=== PATIENT | female | born 1950 | race Caucasian/White ===

== ENCOUNTER 2022-03-28 10:12 | Inpatient (IN) | payer MEDICARE, OTHER ==
[2022-03-28 10:35] LABS: BASOPHILS # (AUTO) 0.1 10^3/uL (0.0-0.1); BASOPHILS % (AUTO) 0.4 %; EOSINOPHILS # (AUTO) 0.1 10^3/uL (0.0-0.7); EOSINOPHILS % (AUTO) 0.7 %; HCT - HEMATOCRIT 43.9 % (37.0-47.0); HGB - HEMOGLOBIN 14.9 g/dL (12.0-16.0); LYMPHOCYTES % (AUTO) 8.2 %; MEAN CORPUSCULAR HEMOGLOBIN 30.8 pg (27.0-31.0); MEAN CORPUSCULAR HGB CONC 33.9 g/dL (32.0-36.0); MEAN CORPUSCULAR VOLUME 90.9 fL (81.0-99.0); MEAN PLATELET VOLUME 9.8 fL (7.9-10.8); MONOCYTES # (AUTO) 0.9 10^3/uL (0.0-1.0); MONOCYTES % (AUTO) 6.9 %; NEUTROPHILS # (AUTO) 10.2 10^3/uL (1.5-6.6); NEUTROPHILS % (AUTO) 83.4 %; PLT - PLATELET COUNT 247 10^3/uL (130-450); RED BLOOD COUNT 4.83 10^6/uL (4.20-5.40); RED CELL DISTRIBUTION WIDTH 11.9 % (12.0-15.0); WHITE BLOOD COUNT 12.3 x10^3/uL (4.8-10.8)
[2022-03-28 10:37] LABS: BILIRUBIN,URINE NEGATIVE (NEGATIVE); GLUCOSE, URINE (UA) NEGATIVE (NEGATIVE); KETONES,URINE (UA) 15 mg/dL (NEGATIVE); LEUKOCYTE ESTERASE, URINE NEGATIVE (NEGATIVE); NITRITE,URINE NEGATIVE (NEGATIVE); OCCULT BLOOD,URINE TRACE-INTA (NEGATIVE); PROTEIN,URINE NEGATIVE (NEGATIVE); UROBILINOGEN,URINE 1 (NORMAL) E.U./dL (NORMAL)
[2022-03-28 10:39] LABS: CLARITY,URINE CLEAR (CLEAR)
[2022-03-28 10:48] LABS: ALBUMIN 4.4 g/dL (3.2-5.5); ALBUMIN/GLOBULIN RATIO 1.1 (1.0-2.2); BILIRUBIN,TOTAL 1.6 mg/dL (0.2-1.0); CALCIUM 9.9 mg/dL (8.5-10.3); CREATININE 0.8 mg/dL (0.4-1.0); TOTAL PROTEIN 8.5 g/dL (6.7-8.2)
--- NOTE | 2022-03-28 12:06 | ED Physician Documentation ---
PD HPI ABD PAIN - Stated complaint Stated Complaint: ABD PX/FEVER - Chief complaint Chief Complaint: Abd Pain - History obtained from History obtained from: Patient - History of Present Illness Timing - onset: Last night Timing - duration: Days (1) Timing - details: Gradual onset Pain level max: 2 Pain level now: 2 Quality: Aching, Pain Location: LLQ Associated symptoms: No: Fever, Nausea, Vomiting, Hematemesis, Diarrhea, Con stipation - Additional information Additional information: Patient is a 71-year-old female who presents to the emergency department complaining of left lower quadrant abdominal pain, described as achy. Has progressed since last night. No fevers. No chills. States she is concerned about potential diverticulitis. She states that she ate some "crunchy" food last night. Review of Systems Ten Systems: 10 systems reviewed and negative Constitutional: denies: Fever, Chills Cardiac: denies: Chest pain / pressure Respiratory: denies: Dyspnea, Cough GI: denies: Vomiting Skin: denies: Rash Musculoskeletal: denies: Neck pain, Back pain Neurologic: denies: Headache PD PAST MEDICAL HISTORY - Past Medical History Past Medical History: No - Present Medications Home Medications: Ambulatory Orders Medication Instructions Recorded Confirmed amLODIPine [Norvasc] 5 mg PO DAILY 03/28/22 03/28/22 hydroCHLOROthiazide 50 mg PO DAILY 03/28/22 03/28/22 [Hydrochlorothiazide] - Allergies Allergies/Adverse Reactions: Allergies Allergy/AdvReac Type Severity Reaction Status Date / Time Sulfa (Sulfonamide Allergy Hives Verified 03/28/22 10:21 Antibiotics) - Social History Does the pt smoke?: No Smoking Status: Never smoker PD ED PE NORMAL - Vitals Vital signs reviewed: Yes - General General: Alert and oriented X 3, No acute distress - HEENT HEENT: Moist mucous membranes - Neck Neck: Supple, no meningeal sign - Cardiac Cardiac: RRR - Respiratory Respiratory: No respiratory distress, Clear bilaterally - Abdomen Abdomen: Soft, Non distended, Other (Tender to palpation left lower quadrant without peritoneal signs) - Back Back: No CVA TTP - Derm Derm: Warm and dry - Extremities Extremities: No edema - Neuro Neuro: Alert and oriented X 3 - Psych Psych: Normal mood, Normal affect Results - Vitals Vitals: Vital Signs - 24 hr 03/28/22 10:17 Temperature 36.3 C L Heart Rate 108 H Respiratory 16 Rate Blood Pressure 162/96 H O2 Saturation 96 Oxygen O2 Source Room air - Labs Labs: Laboratory Tests 03/28/22 03/28/22 03/28/22 10:30 10:30 10:30 WBC 12.3 H RBC 4.83 Hgb 14.9 Hct 43.9 MCV 90.9 MCH 30.8 MCHC 33.9 RDW 11.9 L Plt Count 247 MPV 9.8 Neut # (Auto) 10.2 H Lymph # (Auto) 1.0 L [place] # (Auto) 0.9 Eos # (Auto) 0.1 Baso # (Auto) 0.1 Absolute Nucleated RBC 0.00 Nucleated RBC % 0.0 Sodium 136 Potassium 3.0 L Chloride 94 L Carbon Dioxide 28 Anion Gap 14.0 H BUN 21 H Creatinine 0.8 Estimated GFR (MDRD) 71 L Glucose 107 H Calcium 9.9 Total Bilirubin 1.6 H AST 13 ALT 13 Alkaline Phosphatase 70 Total Protein 8.5 H Albumin 4.4 Globulin 4.1 Albumin/Globulin Ratio 1.1 Lipase 22 Urine Color YELLOW Urine Clarity CLEAR Urine pH 6.0 Ur Specific [place] 1.010 Urine Protein NEGATIVE Urine Glucose (UA) NEGATIVE Urine Ketones 15 H Urine Occult Blood TRACE-INTA Urine Nitrite NEGATIVE Urine Bilirubin NEGATIVE Urine Urobilinogen 1 (NORMAL) Ur Leukocyte Esterase NEGATIVE Ur Microscopic Review NOT INDICATED Urine Culture Comments NOT INDICATED - Rads (name of study) CT abd/pelvis Radiology: Final report received, EMP read contemporaneously, See rad report PD MEDICAL DECISION MAKING - ED course Complexity details: reviewed results, re-evaluated patient, considered differential, d/w patient, d/w family, d/w strategic solutions consultant ED course: 71-year-old female with acute diverticulitis with contained perforation, no abscess. Started on IV antibiotics. We will admit for further care. Discussed the case with Dr. Espinosa, hospitalist accepts. Also discussed the case with Dr. Hodgson, general surgery who will consult and follow along. This document was made in part using voice recognition software. While efforts are made to proofread this document, sound alike and grammatical errors may occur. IMPRESSION: 1. Finding is consistent with acute diverticulitis involving proximal sigmoid colon in left lower quadrant abdomen with suggestion of contained perforation and small pockets of air along medial aspect of inflating the proximal sigmoid colon. No discrete drainable abscess collection. No peritoneal free fluid of free air. 2. Normal appendix. No bowel obstruction. No other area of abnormal bowel wall thickening. 3. Left renal cysts as above. No hydronephrosis or hydroureter. 4. Well-circumscribed fluid density structure in right hepatic lobe likely represent hepatic cyst. Departure - Departure Disposition: [facility] DC/Xfer Clinical Impression: Acute diverticulitis, Perforated diverticulum Condition: Good Discharge Date/Time: 03/28/22 13:57
--- NOTE | 2022-03-28 12:46 | CT Report ---
PROCEDURE: Abdomen/Pelvis W INDICATIONS: LLQ abd pain CONTRAST: IV CONTRAST: Optiray 320 ml: 100 PO CONTRAST: *NO PO CONTRAST TECHNIQUE: After the administration of IV contrast, 5 mm thick sections acquired from the diaphragms to the symp hysis. 5 mm thick coronal and sagittal reformats were acquired. For radiation dose reduction, the f ollowing was used: automated exposure control, adjustment of mA and/or kV according to patient size. COMPARISON: None. FINDINGS: Image quality: Excellent. ABDOMEN: Lung bases: Lung bases are clear. Heart size is normal. Solid organs: Liver and spleen are normal in size. Well-circumscribed oval hypodense area involving right hepatic lobe anterior segment is seen measures 2.7 x 1.9 cm in size and 17 Hounsfield unit in d ensity likely represent hepatic cysts series 3 image 23. Gallbladder the is within normal limits . Bi liary system is non dilated. Pancreas enhances normally. No adrenal nodules. Kidneys demonstrate n ormal size and enhancement, without hydronephrosis. 2 left renal cysts are seen measures 5.3 x 5.9 c m in size in upper pole left kidney and 6.5 x 6 cm in size in lower pole left kidney. Peritoneum and bowel: There is no bowel obstruction. No gastric or small bowel wall thickening. Marke d proximal sigmoid colon wall thickening with extensive adjacent pericolonic fat stranding is seen co nsistent with acute diverticulitis. Extraluminal air is noted medial to inflamed proximal sigmoid col on concerning for contained perforation. No discrete drainable abscess collection. No peritoneal free fluid of free air. Appendix is visualized and is within normal limits. Nodes and vessels: No retroperitoneal or mesenteric adenopathy by size criteria. Aorta and inferior vena cava are normal in size. Miscellaneous: No ventral hernias. PELVIS: Genitourinary: Bladder wall thickness is normal. Miscellaneous: No inguinal hernias or adenopathy. Bones: No suspicious bony lesions. No vertebral body compression fractures. IMPRESSION: 1. Finding is consistent with acute diverticulitis involving proximal sigmoid colon in left lower misha drant abdomen with suggestion of contained perforation and small pockets of air along medial aspect o f inflating the proximal sigmoid colon. No discrete drainable abscess collection. No peritoneal free fluid of free air. 2. Normal appendix. No bowel obstruction. No other area of abnormal bowel wall thickening. 3. Left renal cysts as above. No hydronephrosis or hydroureter. 4. Well-circumscribed fluid density structure in right hepatic lobe likely represent hepatic cyst. Reviewed by: Daniel Aguilar MD on 03/28/2022 12:44 PM PDT Approved by: Daniel Aguilar MD on 03/28/2022 12:44 PM PDT Station ID: [id number]
[2022-03-28] MEDS ORDERED: PIPERACILLIN/TAZOBACTAM 3.375 GM in SODIUM CHLORIDE 0.9% MINIBAG 100 ML IV STA (13:07)
[2022-03-28] MEDS ORDERED: SODIUM CHLORIDE FLUSH 0.9% 10 ML SYRINGE IVP PRN (13:07)
[2022-03-28] MEDS ORDERED: ONDANSETRON ODT 4 MG TABLET TL PRN (13:07)
[2022-03-28] MEDS ORDERED: oxyCODONE 5 MG TABLET PO PRN (13:07)
[2022-03-28] MEDS ORDERED: MORPHINE 2 MG/ML CARPUJECT IVP PRN (13:07)
[2022-03-28] MEDS ORDERED: ACETAMINOPHEN 325 MG TABLET PO PRN (13:07)
[2022-03-28] MEDS ORDERED: ONDANSETRON 4 MG/2 ML VIAL IVP PRN (13:07)
--- NOTE | 2022-03-28 13:18 | HISTORY & PHYSICAL EXAMINATION ---
Chief Complaint - Chief Complaint Chief Complaint: LLQ abd pain History of Present Illness - Admitted From Admitted From:: HOME - History Obtained From Records Reviewed: [facility] History obtained from: Dr. Ponce and patient Exam Limitations: none - History of Present Illness HPI Comment/Other: Patient arrived to the emergency room today by private vehicle stating that she had been having right upper quadrant pain. And then she corrected herself to say that it was right upper quadrant and radiated across to the left upper quadrant and down to the left lower quadrant. The pain started on Sunday. Was very severe Sunday night and seemed to calm down Sunday and Sunday. She almost did not come in today but felt that (after reading about diverticulosis) that she should have it checked out. There has been no fever, no chills, no diarrhea. She has a past medical history for high blood pressure and that is about it. There is no blood in her stool. She does have a history of colon polyps. After discussing anatomy, she was started to realize that the polyps have nothing to do with diverticulosis. In the emergency room she was temperature 36.3. Heart rate of 108. Blood pressure 162/96 and saturating normally on room air. She had a tender left lower quadrant on abdominal exam without peritoneal signs. Soft. Bowel sounds were present. White cell count was 12.3. Potassium was 3. BUN 21. And CAT sc an showed findings consistent with acute diverticulitis involving the proximal sigmoid colon in the left quadrant abdomen with suggestion of contained perforation and small pockets of air along medial aspect of the proximal sigmoid colon. No discrete drainable abscess. No fluid or free air. Normal appendix. Left renal cyst but no hydronephrosis or hydroureter. She had a well circumscribed fluid density in the right hepatic lobe representing hepatic cyst. 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 Had a past medical history of seizures. Dad at age 78 of lung cancer. 4 older siblings. Endometrial cancer, heart disease, emphysema, seizure, and high blood pressure are present in them. Only child, son, is healthy Living arrangement: At home Living Situation: With spouse/s.o. Social History Notes: Under a lot of stress this last year as they have tried to sell their house in [place] and have moved to the [place] this summer. She has been drinking too much and drinks up to 3 drinks a day for the last year. She usually drinks 1 or 2. Started smoking at the age of 26, really started smoking by 28 and was 1 pack/day until 2003. No cocaine, heroin, LSD, speed. 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 to her first . They live in their own home here on [address] - Substance History Use: Uses substance without health or social issues: NONE Abuse: Recurrent use of substance despite neg consequences: NONE Dependence: Experiences withdrawal or developed tolerances: NONE - POLST Patient has POLST: No POLST Status: DNR (She has advanced directives with attorneys. is POA) Meds/Allgy - Home Medications Home Medications: Ambulatory Orders Medication Instructions Recorded Confirmed amLODIPine [Norvasc] 5 mg PO DAILY 03/28/22 03/28/22 hydroCHLOROthiazide 50 mg PO DAILY 03/28/22 03/28/22 [Hydrochlorothiazide] - Allergies Allergies/Adverse Reactions: Allergies Allergy/AdvReac Type Severity Reaction Status Date / Time Sulfa (Sulfonamide Allergy Hives Verified 03/28/22 10:21 Antibiotics) Review of Systems - Constitutional Constitutional: reports: Night sweats (With menopause. Been taking hormone replacement therapy for 5 years. As of last week it started to taper off). den ies: Fatigue, Fever, Chills, Malaise, Poor appetite, Diaphoresis - Eyes Eyes: denies: Pain, Irritation, Amaurosis, Blurred vision - Ears, Nose & Throat Ears, Nose & Throat: denies: Ear pain, Hearing loss, Hearing aids, Vertigo, Dentures, Sore throat - Cardiovascular Cariovascular: denies: Irregular heart rate, Palpitations, Chest pain, Edema, Lightheadedness, Syncope, Exertional dyspnea, Decr. exercise tolerance - Respiratory Respiratory: denies: Cough, Sputum production, Wheezing, Snoring, SOB at rest, SOB with exertion - Gastrointestinal Gastrointestinal: reports: Abdominal pain. denies: Diarrhea, Black stools, Bloody stools, Nausea - Genitourinary Genitourinary: denies: Dysuria, Frequency, Urgency, Hematuria - Musculoskeletal Musculoskeletal: denies: Muscle pain, Back pain, Muscle aches, Stiffness - Integumentary Integumentary: denies: Rash, Pruritis, Lesions, Dryness - Neurological Neurological: reports: Memory problems (Mild. She forgets where she puts things or why she went to go somewhere). denies: General weakness, Headache, Dizziness, Numbness - Psychiatric Psychiatric: reports: Anxiety. denies: Depression, Suicidal - Endocrine Endocrine: denies: Polyuria, Polydypsia, Polyphagia, Intolerance to cold - Hematologic/Lymphatic Hematologic/Lymphatic: denies: Anemia, Bruising, Petechiae, Blood clots Prior Level of Functionality: Completely independent with activities of daily living. Drives, pays bills, cleans house, does yard work. No use of durable medical equipment Exam - Vital Signs Reviewed Vital Signs: Yes Vital Signs: Vital Signs x48h Temp Pulse Resp BP Pulse Ox 03/28/22 10:17 36.3 C L 108 H 16 162/96 H 96 - Physical Exam General Appearance: positive: No acute distress, Alert, Other (Much, much younger appearance than stated age.) Eyes Bilateral: positive: PERRL, EOMI ENT: positive: Pharynx nml Neck: positive: No JVD. negative: Stiff neck Respiratory: positive: No respiratory distress. negative: Wheezes, Rales, Rhonchi Cardiovascular: positive: Regular rate & rhythm. negative: Gallop/S4, Friction rub Abdomen: positive: Nml bowel sounds, Tenderness, Other (Mild in left lower quadrant,). negative: Guarding, Rebound Skin: positive: Warm, Dry Extremities: positive: Full ROM, No pedal edema Neurologic/Psychiatric: positive: Oriented x3, CN's nml (2-12), Motor nml, Sensation nml Conclusion/Plan - Problem List (1) Perforated diverticulum Conclusion/Plan: Plan is an inpatient stay Single agent antibiotics with Zosyn General surgery consult Clear liquid diet with pain management and antiemetics (2) Hypertension Conclusion/Plan: She takes amlodipine and hydrochlorothiazide. Blood pressure was 162 in the emergency room and she is now 128 on MedSurg. Will resume tomorrow morning. Qualifiers: Hypertension type: primary hypertension Qualified Code(s): I10 - Essential (primary) hypertension (3) Alcohol use disorder, mild, abuse Conclusion/Plan: Due to the stress of moving. I have advised her to cut down to 1 drink a day max for a lady who is 5 foot 3. She says that would be easy for her to do. (4) Hypokalemia Conclusion/Plan: supplement IV recheck in am (5) Has access to primary care provider within 41 to 50 miles Conclusion/Plan: Her primary care provider used to be in [place]. But in the last year she is "disappeared". The patient needs to establish himself with a new PCP. She lives in [place]. I will have social work give her a list of primary care providers in the area that she can work with - Lab Results Lab results reviewed: Yes Fish Bones: 03/28/22 10:30 03/28/22 10:30 - Diagnostic Imaging Results Diagnostic Imaging Results: positive: Final report reviewed Diagnostic Imaging Results Comments: Right hepatic lobe cyst. Gallbladder normal. No adrenal nodules. 2 left renal cyst without hydronephrosis. No bowel obstruction. No small bowel disease. Marked proximal sigmoid colon wall thickening with extensive adjacent pericolic fat stranding consistent with acute diverticulitis. Extraluminal air noted medial to inflamed proximal sigmoid colon concerning for perforation. No discrete drainable abscess collection. No peritoneal free fluid or free air. - EKG Results EKG Interpreted Independently: No Core Measures - Anticipated LOS I expect patient to be DC'd or transferred within 96 hours.: Yes - DVT/VTE - Prophylaxis VTE/DVT Prophylaxis med ordered at admit?: Yes
[2022-03-28] MEDS ORDERED: SODIUM CHLORIDE 0.9% 1,000 ML IV SCH (14:00)
[2022-03-28] MEDS: POTASSIUM CHLOR 10 MEQ/100 ML 10 MEQ/100 ML BAG IV SCH ×5 (16:46→23:48)
[2022-03-28] MEDS: SODIUM CHLORIDE FLUSH 0.9% 10 ML SYRINGE IVP SCH (18:14)
[2022-03-28] MEDS: PIPERACILLIN/TAZOBACTAM 3.375 GM in SODIUM CHLORIDE 0.9% MINIBAG 100 ML IV SCH (18:14)
--- NOTE | 2022-03-28 18:25 | CONSULTATION NOTE ---
Referring Provider Name of Referring Provider:: Dr. Espinosa (hospitalist team) Consult Date: 03/28/22 Chief Complaint - Chief Complaint Chief Complaint: abdominal pain History of Present Illness - Admitted From Admitted From:: ED - History Obtained From Records Reviewed: yes History obtained from: chart, ED provider, patient Exam Limitations: none - History of Present Illness HPI Comment/Other: Presents with abdominal pain which began Sunday and worsened Sunday evening. Her pain was acute in onset.The patient notes that she ate "a crunchy dinner" prior to the onset of her symptoms. It was located in the right upper quadrant and radiated to the left upper quadrant and left lower quadrant. Her pain was sharp and severe Sunday evening and kept her up most of the night. She also had a single episode of vomiting which she related to the pain. She has felt chilled but has not had a fever when she is taken her temperature. Initially Sunday and Sunday she had some constipation and over the last 24 hours she reports loose stools. She denies any blood in her stool or melanotic stool. She has a history of colon polyps and gets colonoscopies every 3 years. Her last colonoscopy was approximately 1 year ago. She thinks she may also have a history of diverticulosis.She denies any history of similar pain or diverticulitis. In the emergency department, the patient was tachycardic and was noted to have a leukocytosis. Her CT scan revealed a microperforated diverticulitis in the proximal sigmoid colon. Given the contained perforation, the patient was admitted for IV antibiotics and I am being consulted. 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 Had a past medical history of seizures. Dad at age 78 of lung cancer. 4 older siblings. Endometrial cancer, heart disease, emphysema, seizure, and high blood pressure are present in them. Only child, son, is healthy Living arrangement: At home Living Situation: With spouse/s.o. Social History Notes: Under a lot of stress this last year as they have tried to sell their house in [email or web address] and have moved to the [place] this summer. She has been drinking too much and drinks up to 3 drinks a day for the last year. She usually drinks 1 or 2. Started smoking at the age of 26, really started smoking by 28 and was 1 pack/day until 2003. No cocaine, heroin, LSD, speed. 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 They live in their own home here on [facility] [facility] - Substance History Use: Uses substance without health or social issues: NONE Abuse: Recurrent use of substance despite neg consequences: NONE Dependence: Experiences withdrawal or developed tolerances: NONE - POLST Patient has POLST: No POLST Status: DNR (She has advanced directives with attorneys. is POA) Meds/Allgy - Home Medications Home Medications: Ambulatory Orders Medication Instructions Recorded Confirmed amLODIPine [Norvasc] 5 mg PO DAILY 03/28/22 03/28/22 hydroCHLOROthiazide 50 mg PO DAILY 03/28/22 03/28/22 [Hydrochlorothiazide] - Allergies Allergies/Adverse Reactions: Allergies Allergy/AdvReac Type Severity Reaction Status Date / Time Sulfa (Sulfonamide Allergy Hives Verified 03/28/22 10:21 Antibiotics) Review of Systems - All Other Systems All Other Systems: reports: Reviewed and negative (Except for HPI and past medical history) Exam - Vital Signs Reviewed Vital Signs: Yes Vital Signs: Vital Signs x48h Temp Pulse Pulse Resp BP BP Pulse Ox 03/28/22 15:15 37.1 C 97 24 129/80 97 03/28/22 13:18 95 16 128/94 H 100 - Physical Exam General Appearance: positive: No acute distress, Alert Eyes Bilateral: positive: Normal inspection, PERRL, EOMI ENT: positive: ENT inspection nml Neck: positive: Nml inspection Respiratory: positive: Chest non-tender, No respiratory distress Cardiovascular: positive: Regular rate & rhythm Peripheral Pulses: positive: 2+ Abdomen: positive: No distention, Tenderness (Mild tenderness to very deep palpation in the left lower quadrant, otherwise nontender). negative: Guarding, Rebound, Mass Skin: positive: Color nml Extremities: positive: Non-tender Neurologic/Psychiatric: positive: Oriented x3 Conclusion and Plan - Lab Results Laboratory Results 03/28/22 10:30: Urine Color YELLOW, Urine Clarity CLEAR, Urine pH 6.0, Ur Specific [place] 1.010, Urine Protein NEGATIVE, Urine Glucose (UA) NEGATIVE, Urine Ketones 15 H, Urine Occult Blood TRACE-INTA, Urine Nitrite NEGATIVE, Urine Bilirubin NEGATIVE, Urine Urobilinogen 1 (NORMAL), Ur Leukocyte Esterase NEGATIVE, Ur Microscopic Review NOT INDICATED, Urine Culture Comments NOT INDICATED 03/28/22 10:30: Sodium 136, Potassium 3.0 L, Chloride 94 L, Carbon Dioxide 28, Anion Gap 14.0 H, BUN 21 H, Creatinine 0.8, Estimated GFR (MDRD) 71 L, Glucose 107 H, Calcium 9.9, Total Bilirubin 1.6 H, AST 13, ALT 13, Alkaline Phosphatase 70, Total Protein 8.5 H, Albumin 4.4, Globulin 4.1, Albumin/Globulin Ratio 1.1, Lipase 22 03/28/22 10:30: WBC 12.3 H, RBC 4.83, Hgb 14.9, Hct 43.9, MCV 90.9, MCH 30.8, MCHC 33.9, RDW 11.9 L, Plt Count 247, MPV 9.8, Neut # (Auto) 10.2 H, Lymph # (Auto) 1.0 L, [place] # (Auto) 0.9, Eos # (Auto) 0.1, Baso # (Auto) 0.1, Absolute Nucleated RBC 0.00, Nucleated RBC % 0.0 - Diagnostic Imaging Results Diagnostic Imaging Results: positive: Final report reviewed Diagnostic Imaging Results Comments: I personally reviewed the images and report from the patient's CT scan. She has a contained perforation near an area of inflammation at the proximal sigmoid colon. There is no free air. There is no free fluid. - Consultation Note Consultation Note: This is a 71-year-old female with acute, microperforated diverticulitis. 1. Perforated diverticulitis I agree with the plan for IV antibiotics. The patient has minimal abdominal pain at this time. If her pain remains well controlled without pain medication overnight, her white blood cell count normalizes, and her vitals remained stable, I would recommend transition to a low fiber diet tomorrow morning. He should stay on a low fiber diet for 1 month and then transition to a high-fiber diet. If she tolerates this well, I would agree with discharge tomorrow afternoon on p.o. antibiotics for a total of 10 days. The patient is up-to-date on her colonoscopy and does not need repeat colonoscopy in 6 weeks. 2. Alcohol use disorder, hypertension -As per primary team I will continue to follow along. Thank you for the consultation!
[2022-03-29] MEDS: PIPERACILLIN/TAZOBACTAM 3.375 GM in SODIUM CHLORIDE 0.9% MINIBAG 100 ML IV SCH (01:51)
[2022-03-29] MEDS: POTASSIUM CHLOR 10 MEQ/100 ML 10 MEQ/100 ML BAG IV SCH (01:52)
[2022-03-29] MEDS: SODIUM CHLORIDE FLUSH 0.9% 10 ML SYRINGE IVP SCH ×3 (02:04→16:18)
[2022-03-29 05:20] LABS: BASOPHILS % (AUTO) 0.7 %; EOSINOPHILS # (AUTO) 0.1 10^3/uL (0.0-0.7); EOSINOPHILS % (AUTO) 2.1 %; HGB - HEMOGLOBIN 12.6 g/dL (12.0-16.0); LYMPHOCYTES # (AUTO) 1.3 10^3/uL (1.5-3.5); LYMPHOCYTES % (AUTO) 20.7 %; MEAN CORPUSCULAR HEMOGLOBIN 30.9 pg (27.0-31.0); MEAN CORPUSCULAR HGB CONC 34.1 g/dL (32.0-36.0); MEAN CORPUSCULAR VOLUME 90.7 fL (81.0-99.0); MEAN PLATELET VOLUME 9.4 fL (7.9-10.8); MONOCYTES # (AUTO) 0.6 10^3/uL (0.0-1.0); MONOCYTES % (AUTO) 9.4 %; NEUTROPHILS # (AUTO) 4.1 10^3/uL (1.5-6.6); NEUTROPHILS % (AUTO) 66.9 %; PLT - PLATELET COUNT 206 10^3/uL (130-450); RED BLOOD COUNT 4.08 10^6/uL (4.20-5.40); RED CELL DISTRIBUTION WIDTH 11.9 % (12.0-15.0); WHITE BLOOD COUNT 6.1 x10^3/uL (4.8-10.8)
[2022-03-29 05:43] LABS: CALCIUM 8.5 mg/dL (8.5-10.3); CREATININE 0.7 mg/dL (0.4-1.0); CRP - C-REACTIVE PROTEIN 14.3 mg/dL (0-1.0); POTASSIUM 3.6 mmol/L (3.5-5.0)
--- NOTE | 2022-03-29 07:09 | PROVIDER PROGRESS NOTE ---
Subjective - General Admit Date: 03/28/22 - Review of Systems All Other Systems: positive: Reviewed and negative (Except for HPI and past medical history) - Other Other Information/Narrative: Pain is decreased from time of admission at rest. No fevers, chills overnight. Patient states she was able to get some rest. No n/v. Tolerating clears, no increased pain with PO. No acute events overnight. Objective - Patient Data Reviewed Vital Signs: Yes Vital Signs: Vital Signs x48h Pulse Resp BP Pulse Ox 03/28/22 23:44 77 20 101/51 L 94 Weight: Weight 03/27/22 03/28/22 03/29/22 23:59 23:59 23:59 Weight (kg) 75.5 kg Intake & Output: Intake and Output Totals x24h 03/27/22 03/28/22 03/29/22 23:59 23:59 23:59 Intake Total 1769.167 300 Balance 1769.167 300 - Lab Results Lab Results: 03/29/22 05:12 03/29/22 05:12 Other Lab Results: Lab Results x24hrs 03/29/22 03/29/22 03/28/22 Range/Units 05:12 05:12 13:20 WBC 6.1 (4.8-10.8) x10^3/uL RBC 4.08 L (4.20-5.40) 10^6/uL Hgb 12.6 (12.0-16.0) g/dL Hct 37.0 (37.0-47.0) % MCV 90.7 (81.0-99.0) fL MCH 30.9 (27.0-31.0) pg MCHC 34.1 (32.0-36.0) g/dL RDW 11.9 L (12.0-15.0) % Plt Count 206 (130-450) 10^3/uL MPV 9.4 (7.9-10.8) fL Neut # (Auto) 4.1 (1.5-6.6) 10^3/uL Lymph # (Auto) 1.3 L (1.5-3.5) 10^3/uL Josephine # (Auto) 0.6 (0.0-1.0) 10^3/uL Eos # (Auto) 0.1 (0.0-0.7) 10^3/uL Baso # (Auto) 0.0 (0.0-0.1) 10^3/uL Absolute Nucleated RBC 0.00 x10^3/uL Nucleated RBC % 0.0 /100WBC Sodium 136 (135-145) mmol/L Potassium 3.6 (3.5-5.0) mmol/L Chloride 101 (101-111) mmol/L Carbon Dioxide 26 (21-32) mmol/L Anion Gap 9.0 (6-13) BUN 13 (6-20) mg/dL Creatinine 0.7 (0.4-1.0) mg/dL Estimated GFR (MDRD) 83 L (>89) Glucose 101 H (70-100) mg/dL Calcium 8.5 (8.5-10.3) mg/dL Total Bilirubin (0.2-1.0) mg/dL AST (10-42) IU/L ALT (10-60) IU/L Alkaline Phosphatase (42-121) IU/L C-Reactive Protein 14.3 H (0-1.0) mg/dL Total Protein (6.7-8.2) g/dL Albumin (3.2-5.5) g/dL Globulin (2.1-4.2) g/dL Albumin/Globulin Ratio (1.0-2.2) Lipase (22-51) U/L Urine Color Urine Clarity (CLEAR) Urine pH (5.0-7.5) PH Ur Specific [place] (1.002-1.030) Urine Protein (NEGATIVE) mg/dL Urine Glucose (UA) (NEGATIVE) mg/dL Urine Ketones (NEGATIVE) mg/dL Urine Occult Blood (NEGATIVE) Urine Nitrite (NEGATIVE) Urine Bilirubin (NEGATIVE) Urine Urobilinogen (NORMAL) E.U./dL Ur Leukocyte Esterase (NEGATIVE) Ur Microscopic Review Urine Culture Comments Coronavirus (PCR) NEGATIVE 03/28/22 03/28/22 03/28/22 Range/Units 10:30 10:30 10:30 WBC 12.3 H (4.8-10.8) x10^3/uL RBC 4.83 (4.20-5.40) 10^6/uL Hgb 14.9 (12.0-16.0) g/dL Hct 43.9 (37.0-47.0) % MCV 90.9 (81.0-99.0) fL MCH 30.8 (27.0-31.0) pg MCHC 33.9 (32.0-36.0) g/dL RDW 11.9 L (12.0-15.0) % Plt Count 247 (130-450) 10^3/uL MPV 9.8 (7.9-10.8) fL Neut # (Auto) 10.2 H (1.5-6.6) 10^3/uL Lymph # (Auto) 1.0 L (1.5-3.5) 10^3/uL Josephine # (Auto) 0.9 (0.0-1.0) 10^3/uL Eos # (Auto) 0.1 (0.0-0.7) 10^3/uL Baso # (Auto) 0.1 (0.0-0.1) 10^3/uL Absolute Nucleated RBC 0.00 x10^3/uL Nucleated RBC % 0.0 /100WBC Sodium 136 (135-145) mmol/L Potassium 3.0 L (3.5-5.0) mmol/L Chloride 94 L (101-111) mmol/L Carbon Dioxide 28 (21-32) mmol/L Anion Gap 14.0 H (6-13) BUN 21 H (6-20) mg/dL Creatinine 0.8 (0.4-1.0) mg/dL Estimated GFR (MDRD) 71 L (>89) Glucose 107 H (70-100) mg/dL Calcium 9.9 (8.5-10.3) mg/dL Total Bilirubin 1.6 H (0.2-1.0) mg/dL AST 13 (10-42) IU/L ALT 13 (10-60) IU/L Alkaline Phosphatase 70 (42-121) IU/L C-Reactive Protein (0-1.0) mg/dL Total Protein 8.5 H (6.7-8.2) g/dL Albumin 4.4 (3.2-5.5) g/dL Globulin 4.1 (2.1-4.2) g/dL Albumin/Globulin Ratio 1.1 (1.0-2.2) Lipase 22 (22-51) U/L Urine Color YELLOW Urine Clarity CLEAR (CLEAR) Urine pH 6.0 (5.0-7.5) PH Ur Specific [place] 1.010 (1.002-1.030) Urine Protein NEGATIVE (NEGATIVE) mg/dL Urine Glucose (UA) NEGATIVE (NEGATIVE) mg/dL Urine Ketones 15 H (NEGATIVE) mg/dL Urine Occult Blood TRACE-INTA (NEGATIVE) Urine Nitrite NEGATIVE (NEGATIVE) Urine Bilirubin NEGATIVE (NEGATIVE) Urine Urobilinogen 1 (NORMAL) (NORMAL) E.U./dL Ur Leukocyte Esterase NEGATIVE (NEGATIVE) Ur Microscopic Review NOT INDICATED Urine Culture Comments NOT INDICATED Coronavirus (PCR) - Current Medications Current Medications: Current Medications Generic Name Dose Route Start Last Admin Trade Name Freq PRN Reason Stop Dose Admin Acetaminophen 650 mg 03/28/22 13:07 03/28/22 14:59 Acetaminophen 325 Mg Tablet PO 650 mg Q4HR PRN Administration Pain 1 to 4, or Fever Piperacillin Sod/Tazobactam 100 mls @ 25 mls/hr 03/28/22 18:00 03/29/22 05:51 Sod 3.375 gm/ Sodium Chloride IV Infused Q8H VALERIE Infusion Sodium Chloride 10 ml 03/28/22 17:00 03/29/22 02:04 Sodium Chloride Flush 0.9% 10 Ml Syringe IVP Not Given 0100,0900,1700 [facility] - Physical Exam General Appearance: positive: No acute distress, Alert Eyes Bilateral: positive: Normal inspection ENT: positive: Other (MMM) Respiratory: positive: No respiratory distress, Breath sounds nml Cardiovascular: positive: Regular rate & rhythm Abdomen: positive: Tenderness (mild tenderness with deep palpation in suprapubic region. Otherwise non tender.). negative: Guarding, Rebound Skin: positive: Color nml, No rash Extremities: positive: Non-tender, Full ROM Neurologic/Psychiatric: positive: Oriented x3 ABX Reporting Has patient been on IV antibiotics over the past 48 hours?: Yes Impression/Plan - Problem List Problem List: This is a 71-year-old female with acute, microperforated diverticulitis. 1. Perforated diverticulitis - Pain remains minimal at rest and patient is not requiring any medication for pain, but patient has somewhat more ttp this AM. No peritoneal signs. - VSS, leukocytosis resolved - Ok to adat to low fiber diet this AM, transition to PO abx (recommend total course 10 days) after 24 hours IV abx given. If patient tolerates these changes well, I would support discharge home late today or tomorrow. - She should stay on low fiber diet for 1 month - up to date on colonoscopy, no repeat needed at this time - f/u with me in clinic prn 2. Alcohol use disorder, hypertension -As per primary team I will continue to follow along.
--- NOTE | 2022-03-29 08:31 | PROVIDER PROGRESS NOTE ---
Subjective - Prog Note Date Prog Note Date: 03/29/22 Prog Note Time: 08:30 - Subjective Pt reports feeling: Improved Subjective: she has almost no pain and was eating clear liquids. changed to low fiber diet this am and is doing well. changed to po abx and no increased pain or fever. Current Medications - Current Medications Current Medications: Active Medications Acetaminophen (Acetaminophen 325 Mg Tablet) 650 mg PO Q4HR PRN PRN Reason: Pain 1 to 4, or Fever Last Admin: 03/28/22 14:59 Dose: 650 mg Ciprofloxacin (Ciprofloxacin 250 Mg Tablet) 500 mg PO BID [facility] Enoxaparin Sodium (Enoxaparin 40 Mg/0.4 Ml Syringe) 40 mg SUBQ DAILY [facility] Metronidazole (Metronidazole 250 Mg Tablet) 500 mg PO TIDWM [facility] Morphine Sulfate (Morphine 2 Mg/Ml Carpuject) 2 mg IVP Q2HR PRN PRN Reason: Pain 8 to 10 Ondansetron HCl (Ondansetron Odt 4 Mg Tablet) 4 mg TL Q6HR PRN PRN Reason: Nausea / Vomiting Ondansetron HCl (Ondansetron 4 Mg/2 Ml Vial) 4 mg IVP Q6HR PRN PRN Reason: Nausea / Vomiting Oxycodone HCl (Oxycodone 5 Mg Tablet) 5 mg PO Q4HR PRN PRN Reason: Pain 5 to 7 Sodium Chloride (Sodium Chloride Flush 0.9% 10 Ml Syringe) 10 ml IVP PRN PRN PRN Reason: NEEDED PER PROVIDER ORDERS Sodium Chloride (Sodium Chloride Flush 0.9% 10 Ml Syringe) 10 ml IVP 0100,0900,1700 [facility] Last Admin: 03/29/22 02:04 Dose: Not Given amLODIPine [Norvasc] 5 mg PO DAILY 03/28/22 hydroCHLOROthiazide [Hydrochlorothiazide] 50 mg PO DAILY 03/28/22 Objective - Vital Signs/Intake & Output Reviewed Vital Signs: Yes Vital Signs: Vital Signs x48h Temp Pulse Resp BP Pulse Ox 03/29/22 07:18 37.0 C 81 19 114/75 95 Intake & Output: Intake & Output 03/26/22 03/27/22 03/28/22 03/29/22 23:59 23:59 23:59 23:59 Intake Total 1769.167 300 Balance 1769.167 300 - Objective General Appearance: positive: No acute distress, Alert Eyes Bilateral: positive: PERRL, EOMI ENT: positive: Pharynx nml Neck: positive: No JVD. negative: Stiff neck Respiratory: positive: No respiratory distress. negative: Wheezes, Rales, Rhonchi Cardiovascular: positive: Regular rate & rhythm. negative: Gallop/S4, Friction rub Abdomen: positive: No organomegaly, Nml bowel sounds, No distention, Tenderness (minimal in LLQ and L mid abd. really mild) Skin: positive: Warm, Dry Extremities: positive: Full ROM, No pedal edema Neurologic/Psychiatric: positive: Oriented x3, CN's nml (2-12), Motor nml - Lab Results Fish Bones: 03/29/22 05:12 03/29/22 05:12 Other Labs: Lab Results x24hrs 03/29/22 03/29/22 03/28/22 Range/Units 05:12 05:12 13:20 WBC 6.1 (4.8-10.8) x10^3/uL RBC 4.08 L (4.20-5.40) 10^6/uL Hgb 12.6 (12.0-16.0) g/dL Hct 37.0 (37.0-47.0) % MCV 90.7 (81.0-99.0) fL MCH 30.9 (27.0-31.0) pg MCHC 34.1 (32.0-36.0) g/dL RDW 11.9 L (12.0-15.0) % Plt Count 206 (130-450) 10^3/uL MPV 9.4 (7.9-10.8) fL Neut # (Auto) 4.1 (1.5-6.6) 10^3/uL Lymph # (Auto) 1.3 L (1.5-3.5) 10^3/uL Oliver # (Auto) 0.6 (0.0-1.0) 10^3/uL Eos # (Auto) 0.1 (0.0-0.7) 10^3/uL Baso # (Auto) 0.0 (0.0-0.1) 10^3/uL Absolute Nucleated RBC 0.00 x10^3/uL Nucleated RBC % 0.0 /100WBC Sodium 136 (135-145) mmol/L Potassium 3.6 (3.5-5.0) mmol/L Chloride 101 (101-111) mmol/L Carbon Dioxide 26 (21-32) mmol/L Anion Gap 9.0 (6-13) BUN 13 (6-20) mg/dL Creatinine 0.7 (0.4-1.0) mg/dL Estimated GFR (MDRD) 83 L (>89) Glucose 101 H (70-100) mg/dL Calcium 8.5 (8.5-10.3) mg/dL Total Bilirubin (0.2-1.0) mg/dL AST (10-42) IU/L ALT (10-60) IU/L Alkaline Phosphatase (42-121) IU/L C-Reactive Protein 14.3 H (0-1.0) mg/dL Total Protein (6.7-8.2) g/dL Albumin (3.2-5.5) g/dL Globulin (2.1-4.2) g/dL Albumin/Globulin Ratio (1.0-2.2) Lipase (22-51) U/L Urine Color Urine Clarity (CLEAR) Urine pH (5.0-7.5) PH Ur Specific [place] (1.002-1.030) Urine Protein (NEGATIVE) mg/dL Urine Glucose (UA) (NEGATIVE) mg/dL Urine Ketones (NEGATIVE) mg/dL Urine Occult Blood (NEGATIVE) Urine Nitrite (NEGATIVE) Urine Bilirubin (NEGATIVE) Urine Urobilinogen (NORMAL) E.U./dL Ur Leukocyte Esterase (NEGATIVE) Ur Microscopic Review Urine Culture Comments Coronavirus (PCR) NEGATIVE 03/28/22 03/28/22 03/28/22 Range/Units 10:30 10:30 10:30 WBC 12.3 H (4.8-10.8) x10^3/uL RBC 4.83 (4.20-5.40) 10^6/uL Hgb 14.9 (12.0-16.0) g/dL Hct 43.9 (37.0-47.0) % MCV 90.9 (81.0-99.0) fL MCH 30.8 (27.0-31.0) pg MCHC 33.9 (32.0-36.0) g/dL RDW 11.9 L (12.0-15.0) % Plt Count 247 (130-450) 10^3/uL MPV 9.8 (7.9-10.8) fL Neut # (Auto) 10.2 H (1.5-6.6) 10^3/uL Lymph # (Auto) 1.0 L (1.5-3.5) 10^3/uL Oliver # (Auto) 0.9 (0.0-1.0) 10^3/uL Eos # (Auto) 0.1 (0.0-0.7) 10^3/uL Baso # (Auto) 0.1 (0.0-0.1) 10^3/uL Absolute Nucleated RBC 0.00 x10^3/uL Nucleated RBC % 0.0 /100WBC Sodium 136 (135-145) mmol/L Potassium 3.0 L (3.5-5.0) mmol/L Chloride 94 L (101-111) mmol/L Carbon Dioxide 28 (21-32) mmol/L Anion Gap 14.0 H (6-13) BUN 21 H (6-20) mg/dL Creatinine 0.8 (0.4-1.0) mg/dL Estimated GFR (MDRD) 71 L (>89) Glucose 107 H (70-100) mg/dL Calcium 9.9 (8.5-10.3) mg/dL Total Bilirubin 1.6 H (0.2-1.0) mg/dL AST 13 (10-42) IU/L ALT 13 (10-60) IU/L Alkaline Phosphatase 70 (42-121) IU/L C-Reactive Protein (0-1.0) mg/dL Total Protein 8.5 H (6.7-8.2) g/dL Albumin 4.4 (3.2-5.5) g/dL Globulin 4.1 (2.1-4.2) g/dL Albumin/Globulin Ratio 1.1 (1.0-2.2) Lipase 22 (22-51) U/L Urine Color YELLOW Urine Clarity CLEAR (CLEAR) Urine pH 6.0 (5.0-7.5) PH Ur Specific [place] 1.010 (1.002-1.030) Urine Protein NEGATIVE (NEGATIVE) mg/dL Urine Glucose (UA) NEGATIVE (NEGATIVE) mg/dL Urine Ketones 15 H (NEGATIVE) mg/dL Urine Occult Blood TRACE-INTA (NEGATIVE) Urine Nitrite NEGATIVE (NEGATIVE) Urine Bilirubin NEGATIVE (NEGATIVE) Urine Urobilinogen 1 (NORMAL) (NORMAL) E.U./dL Ur Leukocyte Esterase NEGATIVE (NEGATIVE) Ur Microscopic Review NOT INDICATED Urine Culture Comments NOT INDICATED Coronavirus (PCR) ABX Reporting Has patient been on IV antibiotics over the past 48 hours?: Yes Assessment/Plan - Problem List (1) Perforated diverticulum Impression: Plan is an inpatient stay. Today is Day #2 Single agent antibiotics with Zosyn, Day #2. General surgery consult would like to advance diet and to change abx. Those were done. If she does well, dc in am. (2) Hypertension Conclusion/Plan: She takes amlodipine and hydrochlorothiazide. Blood pressure was 162 in the emergency room and she is now 128 on MedSurg. I have not resumed since BP is controlled. Qualifiers: Hypertension type: primary hypertension Qualified Code(s): I10 - Essential (primary) hypertension (3) Alcohol use disorder, mild, abuse Conclusion/Plan: Due to the stress of moving. I have advised her to cut down to 1 drink a day max for a lady who is 5 foot 3. She says that would be easy for her to do. (4) Hypokalemia resolved after supplementation Conclusion/Plan: recheck in am
[2022-03-29] MEDS: CIPROFLOXACIN 250 MG TABLET PO SCH ×2 (09:31→20:32)
[2022-03-29] MEDS: ENOXAPARIN 40 MG/0.4 ML SYRINGE SUBQ SCH (09:33)
[2022-03-29] MEDS: metroNIDAZOLE 250 MG TABLET PO SCH ×2 (12:05→16:18)
[2022-03-30] MEDS: SODIUM CHLORIDE FLUSH 0.9% 10 ML SYRINGE IVP SCH ×2 (01:11→07:52)
[2022-03-30 05:02] LABS: BASOPHILS % (AUTO) 0.6 %; EOSINOPHILS # (AUTO) 0.2 10^3/uL (0.0-0.7); EOSINOPHILS % (AUTO) 2.4 %; HCT - HEMATOCRIT 37.6 % (37.0-47.0); HGB - HEMOGLOBIN 12.5 g/dL (12.0-16.0); LYMPHOCYTES # (AUTO) 1.3 10^3/uL (1.5-3.5); LYMPHOCYTES % (AUTO) 18.7 %; MEAN CORPUSCULAR HEMOGLOBIN 30.1 pg (27.0-31.0); MEAN CORPUSCULAR HGB CONC 33.2 g/dL (32.0-36.0); MEAN CORPUSCULAR VOLUME 90.6 fL (81.0-99.0); MEAN PLATELET VOLUME 9.4 fL (7.9-10.8); MONOCYTES # (AUTO) 0.6 10^3/uL (0.0-1.0); MONOCYTES % (AUTO) 9.3 %; NEUTROPHILS # (AUTO) 4.6 10^3/uL (1.5-6.6); NEUTROPHILS % (AUTO) 68.6 %; PLT - PLATELET COUNT 216 10^3/uL (130-450); RED BLOOD COUNT 4.15 10^6/uL (4.20-5.40); RED CELL DISTRIBUTION WIDTH 11.9 % (12.0-15.0); WHITE BLOOD COUNT 6.7 x10^3/uL (4.8-10.8)
[2022-03-30 05:23] LABS: CALCIUM 8.7 mg/dL (8.5-10.3); CREATININE 0.6 mg/dL (0.4-1.0); CRP - C-REACTIVE PROTEIN 6.9 mg/dL (0-1.0); POTASSIUM 3.3 mmol/L (3.5-5.0)
[2022-03-30 07:48] VITALS: BP 133/86
[2022-03-30] MEDS: CIPROFLOXACIN 250 MG TABLET PO SCH (07:51)
[2022-03-30] MEDS: metroNIDAZOLE 250 MG TABLET PO SCH (07:51)
[2022-03-30] MEDS: ENOXAPARIN 40 MG/0.4 ML SYRINGE SUBQ SCH ×2 (07:51→07:54)
--- NOTE | 2022-03-30 07:56 | Discharge Plan ---
Discharge Plan Problem Reviewed?: Yes Disposition: Home, Self Care Condition: Good Prescriptions: Ciprofloxacin [Cipro] 500 mg PO Q12H #32 tablet metroNIDAZOLE [Flagyl] 500 mg PO TID #24 tablet Diet: Regular (low fiber diet for a month) Activity Restrictions: Activity as Tolerated Shower Restrictions: No Driving Restrictions: No Instruction Topics: Diverticulosis Diverticulitis, Diverticulitis Dc Health Concerns: You presented to the emergency room with a new onset of abdominal pain that been going on for 2 days. She had been much worse 2 days previously and was getting gradually better but you thought we should check it out. In the emergency room we found you to have diverticulitis. A CAT scan showed that you have perforated the left sided large bowel through diverticulosis. It had developed inflammation and was now called diverticulitis. You responded very nicely to antibiotics, and a clear liquid diet. General surgery was consulted throughout your case as well. Plan of Treatment: 1. To complete antibiotic therapy. I have sent prescriptions for medications called ciprofloxacin and Flagyl. Both of these antibiotics must be completed. 2. Take an [id number] probiotic once a day to help regulate your bowels because they are on antibiotics 3. Please establish yourself with a primary care provider so that you can see them in follow-up. 4. Please eat a low fiber diet for the next month. This will reduce the work of your bowel and lessen the pressure against the bowel wall so that diverticulitis does not get worse Care Goals: To complete therapy for diverticulitis and not to have its recurrence. Assessment: Patient is alert, oriented, and will follow through on care goals No Smoking: If you smoke, Please STOP! Call for help.
--- NOTE | 2022-03-30 10:02 | DISCHARGE SUMMARY ---
"Discharge Summary Admit Date: 03/28/22 Discharge Date: 03/30/22 Discharging Provider: Polly Espinosa MD Primary Care Provider: No PCP yet Code Status: Do Not Attempt Resuscitation Condition at Discharge: Good Discharge Disposition: 01 Home, Self Care - DIAGNOSES Discharge Diagnoses with Status of Each Condition: !. Diverticulitis of sigmoid bowel with perforation, no bleeding 2. Essential hypertension 3. Alcohol abuse, uncomplicated, mild 4. Hypokalemia - HPI History of Present Illness: Patient arrived to the emergency room today by private vehicle stating that she had been having right upper quadrant pain. And then she corrected herself to say that it was right upper quadrant and radiated across to the left upper quadrant and down to the left lower quadrant. The pain started on Sunday. Was very severe Sunday night and seemed to calm down Sunday and Sunday. She almost did not come in today but felt that (after reading about diverticulosis) that she should have it checked out. There has been no fever, no chills, no diarrhea. She has a past medical history for high blood pressure and that is about it. There is no blood in her stool. She does have a history of colon polyps. After discussing anatomy, she was started to realize that the polyps have nothing to do with diverticulosis. In the emergency room she was temperature 36.3. Heart rate of 108. Blood pressure 162/96 and saturating normally on room air. She had a tender left lower quadrant on abdominal exam without peritoneal signs. Soft. Bowel sounds were present. White cell count was 12.3. Potassium was 3. BUN 21. And CAT scan showed findings consistent with acute diverticulitis involving the proximal sigmoid colon in the left quadrant abdomen with suggestion of contained perforation and small pockets of air along medial aspect of the proximal sigmoid colon. No discrete drainable abscess. No fluid or free air. Normal appendix. Left renal cyst but no hydronephrosis or hydroureter. She had a well circums cribed fluid density in the right hepatic lobe representing hepatic cyst. 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 Hodgson Procedures: Abdomen pelvis CT: Liver and spleen normal. Oval hypodense area involving the right hepatic lobe representing hepatic cyst. Gallbladder normal. Biliary system nondilated. Pancreas enhances normally. Kidneys without hydronephrosis and there are 2 left renal cysts. No bowel obstruction. No gastric or small bowel thickening. Marked proximal sigmoid colon wall thickening with extensive adjacent pericolonic fat stranding is seen consistent with acute diverticulitis. Extraluminal air is noted medial to inflamed proximal sigmoid colon concerning for contained perforation. No abscess. No peritoneal free fluid or free air. - HOSPITAL COURSE Hospital Course: She was placed on empiric antibiotic therapy with single agent antibiotics Zosyn for diverticulitis. General surgery saw her in consultation. She was initially placed on a clear liquid diet and advanced to low fiber diet without complication. White cell count normalized. The patient was symptom-free by the second day. Having normal bowel movements. Ambulating in the room. Eating normally. She was discharged in stable condition. Because she has had previous colonoscopies it was not felt that she needed an immediate colonoscopy and she was asked to continue keeping her regular delilah for scheduled colonoscopies. [place] She is asked to establish herself with a new primary care provider. General surgery stated that if the patient developed fever, chills, abdominal pain, bloody stool to return to the emergency room. We would like for her to be on a low fiber diet for the next month. I have asked her to make sure she drinks plenty of fluids, does a low fiber diet. Discharge exam had a temperature of 37. Heart rate 92. Blood pressure 133/86. Respirations 16. 97% on room air. She is 5 feet 3 inches tall and weighs 75.5 kg. She looks much younger than stated age. Neck is supple. Lungs are clear. No rhonchi, rales, wheezing. She has a regular rate and rhythm without murmurs rubs or gallops. The abdomen is completely nontender. She had minimal tenderness in the left lower quadrant and left mid abdomen when she was admitted. That is completely resolved. There is no rebound, no guarding, normal bowel sounds. She had a bowel movement the day before discharge and the day of discharge. Ambulating in the room without any deficits, ataxia. Speech is normal. Nursing notes reports tenderness on exam. However, at discharge, and examining her, I am not finding any tenderness. Greater than 30 minutes was spent coordinating discharge, instructing the patient. - ALLERGIES Allergies/Adverse Reactions: Allergies Allergy/AdvReac Type Severity Reaction Status Date / Time Sulfa (Sulfonamide Allergy Hives Verified 03/28/22 10:21 Antibiotics) - MEDICATIONS Home Medications: Ambulatory Orders Medication Instructions Recorded Confirmed amLODIPine [Norvasc] 5 mg PO DAILY 03/28/22 03/28/22 hydroCHLOROthiazide 50 mg PO DAILY 03/28/22 03/28/22 [Hydrochlorothiazide] Ciprofloxacin [Cipro] 500 mg PO Q12H #32 tablet 03/29/22 metroNIDAZOLE [Flagyl] 500 mg PO TID #24 tablet 03/29/22 - LABS Result Diagrams: 03/30/22 04:56 03/30/22 04:56"
== END 2022-03-30 10:14 | disposition home or self-care (01) | DRG 392 ==
LOC: ED 10:12 → MS2 13:07
PROVIDERS: ADMIT Specialist; ATTEND Specialist
DX: K57.20 Diverticulitis of large intestine with perforation and abscess without bleeding (principal); Z20.822 Contact with and (suspected) exposure to COVID-19; I10 Essential (primary) hypertension; F10.10 Alcohol abuse, uncomplicated; E87.6 Hypokalemia; E78.00 Pure hypercholesterolemia, unspecified; N95.1 Menopausal and female climacteric states; F17.200 Nicotine dependence, unspecified, uncomplicated; Z66 Do not resuscitate; Z79.890 Hormone replacement therapy; Z79.899 Other long term (current) drug therapy; Z80.1 Family history of malignant neoplasm of trachea, bronchus and lung; Z80.49 Family history of malignant neoplasm of other genital organs; Z82.3 Family history of stroke; Z82.49 Family history of ischemic heart disease and other diseases of the circulatory system; Z82.5 Family history of asthma and other chronic lower respiratory diseases
CPT/HCPCS: 36415; 74177; 80048; 80053; 81003; 83690; 85025; 86140; 99284; 99285; A9270; Q9967; U0004; 81001; 87086

== ENCOUNTER 2022-07-26 14:14 | Outpatient (CLI) | payer MEDICARE, OTHER ==
--- NOTE | 2022-07-27 10:35 | Mammography Report ---
BILATERAL DIGITAL SCREENING MAMMOGRAM 3D/2D: 07/26/2022 CLINICAL: Routine screening. Comparison is made to exams dated: 07/01/2021 mammogram, 04/21/2020 mammogram, 12/18/2018 mammogram, mammogram, and 07/08/2014 mammogram - [facility]. Both breasts are heterogeneously dense, which may obscure small masses (category c / 51-75% glandular tissue). No significant masses, calcifications, or other findings are seen in either breast. There has been no significant interval change. IMPRESSION: NEGATIVE There is no mammographic evidence of malignancy. A 1 year screening mammogram is recommended. Based on the Tyrer Cuzick model (a risk assessment model) the patients lifetime risk is 5.6% and her 10 year risk is 3.6%. According to the ACR, ACS, and NCCN guidelines, an annual breast MRI exam leigh g with mammogram is recommended if the patients lifetime risk is 20% or greater. This exam was interpreted at Station ID: [id number]. NOTE: For mammograms, a report in lay terms will be sent to the patient. Approximately 15% of breast malignancies will not be visualized mammographically. In the management of a palpable breast mass, a negative mammogram must not discourage biopsy of a clinically suspicious lesion. Electronically Signed By: Freddy britton/urbano:07/27/2022 06:44:07 ACR BI-RADS Category 1: Negative [id number] PARENCHYMAL PATTERN: (D) - The breast(s) demonstrate(s) heterogeneously dense fibroglandular jatinder grubbs. BI-RADS CATEGORY: (1) - 1 RECOMMENDATION: (ANNUAL) - Recommend routine annual screening mammography. [id number] 1 year screening LATERALITY: (B)
== END 2022-07-26 14:15 | disposition home or self-care (01) ==
LOC: DI 14:14
PROVIDERS: ATTEND Obstetrics & Gynecology
DX: Z12.31 Encounter for screening mammogram for malignant neoplasm of breast (principal)

== ENCOUNTER 2022-07-26 14:17 | Outpatient (CLI) | payer MEDICARE, OTHER ==
--- NOTE | 2022-07-26 21:17 | DEXA Report ---
PROCEDURE: Dexa Spine and/or Hip INDICATIONS: POST MENOPAUSAL TECHNIQUE: Dual energy x-ray absorptiometry (DXA) was performed on a [employer] System. Regions measur ed are the AP Spine, femoral neck, and if needed forearm. COMPARISON: None. FINDINGS: Lumbar Spine: Bone Mineral Density 0.980 g/cm/cm,T score -1.7, osteopenia. Left Femoral Neck: Bone Mineral Density 0.853 g/cm/cm, T score -1.3, osteopenia. Left Hip: Bone Mineral Density 0.963 g/cm/cm,T score -0.4, normal. (T score greater or equal to -1.0: NORMAL) (T score from -1.1 to -2.4: OSTEOPENIA) (T score less than or equal to -2.5 to: OSTEOPOROSIS) Impression: Osteopenia. Patients with diagnosis of osteoporosis or osteopenia should have regular bone mineral density assess ment. For those eligible for Medicare, routine testing is allowed once every 2 years. Testing frequ ency can be increased for patients who have rapidly progressing disease or for those who are receivin g medical therapy to restore bone mass. Reviewed by: Kiel Hill MD on 07/26/2022 9:16 PM PST Approved by: Kiel Hill MD on 07/26/2022 9:16 PM PST Station ID: [id number]
== END 2022-07-26 14:18 | disposition home or self-care (01) ==
LOC: DI 14:17
PROVIDERS: ATTEND Obstetrics & Gynecology
DX: M85.89 Other specified disorders of bone density and structure, multiple sites (principal); Z78.0 Asymptomatic menopausal state